=== PATIENT | male | born 1940 | race Caucasian/White ===

== ENCOUNTER 2016-09-23 08:55 | Day surgery (SDC) | payer OTHER ==
[2016-09-23] MEDS ORDERED: TETRACAINE 0.5% OPHTH 1 DOSE AFFEYE ONE ×3 (09:30→12:58)
[2016-09-23] MEDS ORDERED: VIGAMOX 0.5% OPHTH 1 DOSE AFFEYE ONE ×5 (09:31→13:09)
[2016-09-23] MEDS ORDERED: PROLENSA OPHTH 1 DOSE AFFEYE ONE (09:42)
[2016-09-23] MEDS ORDERED: ALPHAGAN-P OPHTH 1 DOSE AFFEYE ONE (09:43)
[2016-09-23] MEDS ORDERED: MYDRIACIL OPHTH 1 DOSE AFFEYE ONE ×3 (09:45→09:50)
[2016-09-23] MEDS ORDERED: AK-DILATE 2.5% OPHTH 1 DOSE OP ONE ×3 (09:45→09:50)
[2016-09-23] MEDS ORDERED: CYCLOGYL 1% OPHTH 1 DOSE OP ONE ×3 (09:45→09:50)
[2016-09-23] MEDS ORDERED: NS 500 ML IV 500 ML IV ONE (10:07)
[2016-09-23] MEDS ORDERED: BETADINE OPHTH SOLN 5% EACHEYE ONE (12:48)
[2016-09-23] MEDS ORDERED: XYLOCAINE-MPF 1% IJ ONE (12:58)
[2016-09-23] MEDS ORDERED: DUOVISC IO ONE (12:58)
[2016-09-23] MEDS ORDERED: BSS OPHTH (PLAIN) 500 ML with VANCOMYCIN HCL 500 MG VIAL 25 MG, ADRENALINE CHL INJ 1 MG IR ONE ×3 (12:58)
[2016-09-23] MEDS ORDERED: ADRENALINE CHL INJ IJ ONE (12:58)
[2016-09-23 15:22] VITALS: BP 188/89
== END 2016-09-23 13:35 | disposition home or self-care (01) ==
LOC: SURG1 08:55
PROVIDERS: ATTEND Ophthalmology
PROC: 08J1XZZ Inspection of Left Eye, External Approach (ICD-10-PCS; principal; 2016-09-23 17:15)
PROC: 08RK3JZ Replacement of Left Lens with Synthetic Substitute, Percutaneous Approach (ICD-10-PCS; principal; 2016-09-23 17:15)
PROC: 08DK3ZZ Extraction of Left Lens, Percutaneous Approach (ICD-10-PCS; principal; 2016-09-23 17:15)
DX: H25.12 Age-related nuclear cataract, left eye (principal); H25.012 Cortical age-related cataract, left eye; H25.042 Posterior subcapsular polar age-related cataract, left eye; H52.222 Regular astigmatism, left eye
CPT/HCPCS: 99100; A4217; J0170; J3370

== ENCOUNTER 2016-10-07 07:49 | Day surgery (SDC) | payer OTHER ==
[2016-10-07] MEDS ORDERED: NS 500 ML IV 500 ML IV ONE (08:24)
[2016-10-07] MEDS ORDERED: TETRACAINE 0.5% OPHTH 1 DOSE AFFEYE ONE ×4 (08:33→12:13)
[2016-10-07] MEDS ORDERED: VIGAMOX 0.5% OPHTH 1 DOSE AFFEYE ONE ×6 (08:34→12:31)
[2016-10-07] MEDS ORDERED: PROLENSA OPHTH 1 DOSE AFFEYE ONE (08:45)
[2016-10-07] MEDS ORDERED: ALPHAGAN-P OPHTH 1 DOSE AFFEYE ONE (08:46)
[2016-10-07] MEDS ORDERED: CYCLOGYL 1% OPHTH 1 DOSE OP ONE ×4 (08:47→08:50)
[2016-10-07] MEDS ORDERED: AK-DILATE 2.5% OPHTH 1 DOSE OP ONE ×4 (08:47→08:50)
[2016-10-07] MEDS ORDERED: MYDRIACIL OPHTH 1 DOSE AFFEYE ONE ×4 (08:47→08:50)
[2016-10-07] MEDS ORDERED: BETADINE OPHTH SOLN 5% EACHEYE ONE (11:58)
[2016-10-07] MEDS ORDERED: BSS OPHTH (PLAIN) 500 ML with VANCOMYCIN HCL 500 MG VIAL 25 MG, ADRENALINE CHL INJ 1 MG IR ONE ×6 (12:08)
[2016-10-07] MEDS ORDERED: ADRENALINE CHL INJ IJ ONE ×2 (12:08→12:13)
[2016-10-07] MEDS ORDERED: DUOVISC IO ONE (12:08)
[2016-10-07] MEDS ORDERED: XYLOCAINE-MPF 1% IJ ONE ×2 (12:08→12:13)
[2016-10-07] MEDS ORDERED: VISCOAT 0.5 ML IO ONE (12:19)
[2016-10-07 13:22] VITALS: BP 182/86
[2016-10-07] MEDS ORDERED: VERSED ONE (16:10)
== END 2016-10-07 12:55 | disposition home or self-care (01) ==
LOC: SURG1 07:49
PROVIDERS: ATTEND Ophthalmology
PROC: 08DJ3ZZ Extraction of Right Lens, Percutaneous Approach (ICD-10-PCS; principal; 2016-10-07 13:00)
PROC: 08RJ3JZ Replacement of Right Lens with Synthetic Substitute, Percutaneous Approach (ICD-10-PCS; principal; 2016-10-07 13:00)
DX: H25.011 Cortical age-related cataract, right eye (principal); H25.11 Age-related nuclear cataract, right eye; H25.041 Posterior subcapsular polar age-related cataract, right eye; H52.221 Regular astigmatism, right eye
CPT/HCPCS: 99100; A4217; J0170; J2250; J3370

== ENCOUNTER 2017-05-27 13:26 | Emergency (ER) | payer OTHER ==
[2017-05-27 13:34] VITALS: BMI 32.3
[2017-05-27] MEDS ORDERED: ADACEL TDaP IM ONE ×2 (15:55→15:57)
--- NOTE | 2017-05-27 16:37 | RAD ---
History: Laceration to right thumb area with a chain saw Study: PA and oblique and lateral views of the right hand Findings: There is a soft tissue deficit in the thenar eminence. No foreign body is demonstrated. The re is no fracture or dislocation. Impression: Soft tissue injury to thenar eminence, no acute bony abnormality. Reported By:
[2017-05-27] MEDS ORDERED: NS IRRIGATION 1000 ML 1,000 ML ONE (16:48)
[2017-05-27] MEDS ORDERED: XYLOCAINE 1 % (PLAIN) ONE (17:03)
[2017-05-27 17:22] VITALS: BP 188/91
[2017-05-27] MEDS ORDERED: TORADOL 60 MG VIAL IM ONE (18:12)
[2017-05-27] MEDS ORDERED: ANCEF VIAL 1 GM IM ONE (18:12)
[2017-05-27] MEDS ORDERED: HYDROGEN PEROXIDE 3% ONE (18:12)
[2017-05-27] MEDS ORDERED: BACITRACIN ZINC ONE (18:15)
--- NOTE | 2017-05-27 18:15 | DR.LACERAT ---
HPI - Time Seen Time seen: 17:35 - Primary Care Physician Primary Care Physician: none - HPI Comment HPI Comment: NO OTHER INJURY REPORTED. - Complaints Chief Complaint Doctors Comments: LACERATION RT WEB SPACE AND SKIN TEAR FOREARM SUSTAIN YESTEDAY. CONTINUE TO BLEED. TD NOT UTD. Chief Complaint:: laceration to back of rt hand yesterday approx 1500 hrs-has hand bandaged-no visible bleeding-pt says he takes no meds for htn or diabetes- unknown tetanus status - Reviewed Nurses Notes Reviewed: Yes - Source History Provided: Patient - Mode of Arrival Mode of Arrival: Ambulatory - Location Right Hand Wound's Depth, Shape: Irregular, Stellate - Timing Onset of Chief Complaint: 05/26/17 - Context Tetanus Vaccination: Unknown - Severity Pain Severity: Moderate Bleeding:: Controlled - Associated Signs and Symptoms Associated Signs and Symptoms: None PMH - PMH Past Medical History: Yes Past Medical History: Diabetes, Hypertension Past Surgical History: Yes Surgical History: CABG/Valve Surgery - Family History History of Family Medical Conditions: No - infectious screening In the last 2 months have you had wt loss of >10#?: NO Have you had fever, night sweats or hemotysis?: No Have you traveled outside the country in the last 6 months?: No Isolation: Standard ROS - Review of Systems Constitutional: No Symptoms Reported Eyes: No Symptoms Reported ENTM: No Symptoms Reported Respiratoy: No Symptoms Reported Cardiovascular: No Symptoms Reported Gastrointestinal/Abdominal: No Symptoms Reported Genitourinary: No Symptoms Reported Neurological: No Symptoms Reported Musculoskeletal: Right, Forearm (SKIN TEAR), Hand (LACERATION RT FIRST WEB SPACE.) Integumentary: Change in Color, Wound Hematologic/Lymphatic: No Symptoms Reported Endocrine: No Symptoms Reported All Other Systems: Reviewed and Negative PE - Vital Signs Vitals: Temperature 98.7 F Pulse Rate [Left Brachial] 85 Pulse Rate 90 Respiratory Rate 16 Blood Pressure [Left Arm] 188/91 Blood Pressure 227/115 O2 Sat by Pulse Oximetry 99 - General Limitations: No Limitations General Appearance: Alert - Head Head Exam: Normal Inspection - Eyes Eye exam: Normal Appearance - ENT ENT Exam: Normal External Ear Exam - Neck Neck Exam: Trachea Midline - Chest Chest Inspection: Symmetric Chest Wall Rise - Respiratory Respiratory Exam: Normal Lung Sounds Bilat Respiratory Exam: Bilateral Clear to Auscultation - Cardiovascular Cardiovascular Exam: Regular Rate, Normal Rhythm, Normal Heart Sounds - Abdominal Exam Abdominal Exam: Normal Bowel Sounds, Soft. negative: Tenderness - Extremities Extremities Exam: Tenderness (FIRST WEB SPACE RT 7CM LACERATION. SKIN TEAR FOREARM RT.) - Back Back Exam: Normal Inspection - Neurologic Neurological Exam: Alert, Oriented X3 - Psychiatric Psychiatric Exam: Normal Affect, Normal Mood - Skin Type of Lesion: Laceration, Abrasion (SKIN TEAR) MDM - Differential Diagnosis Differential Diagnosis: Laceration, Fracture Differential Diagnosis Comment: INFECTED WOUND. Course - Treatment Treatment: SEE ORDERS. - Education/Counseling Education/Counseling: Patient, Family, Education Educated On: Treatment, Diagnosis, Needs for Follow Up ROR - XRAY XRAY Interpreted by: Radiologist XRAY Findings: REPORT DISCUSS WITH PATIENT. Procedures - Laceration/Wound Repair Right Hand Wound Length (cm): 7 Wound's Depth, Shape: Stellate Wound Explored: contaminated Irrigated w/ Saline (ccs): 50 Anesthesia: 2% Lidocaine Volume Anesthetic (ccs): 5 Wound Debrided: minimal Wound Repaired With: sutures Suture Size/Type: 4:0, [place] Number of Sutures: 9 Layer Closure?: No Sterile Dressing Applied?: Yes Splint Applied?: No Sling Applied?: No - Diagnosis Discharge Problem: Wound infection Laceration of right hand Qualifiers: Encounter type: initial encounter Foreign body presence: without foreign body Qualified Code(s): S61.411A - Laceration without foreign body of right hand, initial encounter - Discharge Plan Disposition: 01 HOME, SELF-CARE Condition: Stable Prescriptions: Cephalexin [KEFLEX CAP 500 MG *] 500 mg PO TID #30 cap Ibuprofen [MOTRIN TAB 600 MG *] 600 mg PO TID PRN #20 tab PRN Reason: Pain/Inflammation Tramadol HCl 50 mg PO Q12H #10 tablet - Follow ups/Referrals Follow ups/Referrals: NFD,None [Primary Care Provider] - 3 days - Instructions Instructions: Laceration Care, Adult, [id number] Additional Instructions: RETURN TO ED IF WORSE. SUTURE OUR IN 10 DAYS.
[2017-05-27] MEDS ORDERED: ANCEF VIAL 1 GM ONE (18:19)
[2017-05-27] MEDS ORDERED: TORADOL 60 MG VIAL ONE (18:19)
== END 2017-05-27 18:38 | disposition home or self-care (01) ==
LOC: ER 13:38
PROC: 0XQJ0ZZ Repair Right Hand, Open Approach (ICD-10-PCS; principal; 2017-05-27)
DX: S61.411A Laceration without foreign body of right hand, initial encounter (principal); T81.4XXA Infection following a procedure, initial encounter; W45.8XXA Other foreign body or object entering through skin, initial encounter; Y92.9 Unspecified place or not applicable
CPT/HCPCS: 73130; 90471; 96372; 99282; 99283; J0690; J1885; J2001